=== PATIENT | male | born 1935 | race Caucasian/White ===

== ENCOUNTER 2017-11-03 10:23 | Emergency (ER) | payer OTHER, MEDICARE ==
[~2017-11-03] VITALS: Ht 177.8 cm; Wt 102.0 kg
[~2017-11-03 10:23] MED LIST: IOHEXOL 350 MG/ML 10 ML VIAL (for RAD DIAG) IVCONTRAST ONE
[2017-11-03 10:36] VITALS: BP 187/91; PULSE 60; RESP 19; TEMP 98.2; O2SAT 96
[2017-11-03] MEDS ORDERED: LISI-515 PO (10:42)
[2017-11-03] MEDS ORDERED: GLIM4TAB PO (10:42)
[2017-11-03] MEDS ORDERED: OMEP20TA93 PO (10:42)
[2017-11-03] MEDS ORDERED: ASPI81TA81 (10:42)
[2017-11-03] MEDS ORDERED: PRAV40TA2 PO (10:42)
[2017-11-03] MEDS ORDERED: LEVO75TA3 PO (10:42)
[2017-11-03] MEDS ORDERED: ATEN50TA PO (10:42)
[2017-11-03] MEDS ORDERED: METF500T PO (10:42)
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
[2017-11-03 11:23] LABS: AUTOMATED NEUTROPHIL # 5.9 TH/MM3 (1.8-7.7); BASOPHIL # 0.1 TH/MM3 (0-0.2); BASOPHIL % 1.2 % (0.0-2.0); EOSINOPHIL # 0.2 TH/MM3 (0-0.4); EOSINOPHIL % 2.3 % (0.0-4.0); HEMATOCRIT 45.8 % (39.0-51.0); HEMO FLAGS DIFF FINAL; LYMPH % 14.6 % (9.0-44.0); LYMPHOCYTE # 1.1 TH/MM3 (1.0-4.8); MEAN CELL VOLUME 92.7 FL (80.0-100.0); MEAN CORPUSCULAR HEMOGLOBIN 30.5 PG (27.0-34.0); MEAN CORPUSCULAR HGB CONC 32.9 % (32.0-36.0); MONO % 5.9 % (0.0-8.0); PLATELET COUNT 204 TH/MM3 (150-450); RED BLOOD COUNT 4.94 MIL/MM3 (4.50-5.90); RED CELL DISTRIBUTION WIDTH 13.6 % (11.6-17.2); WHITE BLOOD COUNT 7.7 TH/MM3 (4.0-11.0)
[2017-11-03 11:40] LABS: BICARBONATE 28.9 MEQ/L (21.0-32.0)
[2017-11-03 11:42] LABS: POTASSIUM 4.9 MEQ/L (3.5-5.1)
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
[2017-11-03] MEDS ORDERED: ACETAMINOPHEN/HYDROcodone 325 MG/5 MG TAB PO ONE (12:00)
[2017-11-03 12:04] VITALS: BP 158/73; PULSE 66; RESP 17; O2SAT 97
[2017-11-03 13:05] VITALS: RESP 16
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
[2017-11-03] MEDS ORDERED: MORPHINE SULFATE 4 MG/ML INJ IV PUSH ONE (13:15)
[2017-11-03] MEDS ORDERED: PERC5TAB12 PO ×2 (13:32→14:03)
[2017-11-03 14:45] VITALS: BP 151/76
--- NOTE | 2017-11-03 22:04 | EKG ---
Date Performed: 11/03/2017 Time Performed: 10:43:48 PTAGE: 82 years EKG: SINUS BRADYCARDIA RIGHT BUNDLE BRANCH BLOCK ABNORMAL ECG NO PREVIOUS TRACING DOCTOR: Ap Moreno Interpretating Date/Time 11/03/2017 22:03:36
[2017-11-04] MEDS ORDERED: MOBI15TA PO (19:23)
[2017-11-04] MEDS ORDERED: PERC10TA27 PO (19:23)
== END 2017-11-03 14:45 | disposition home or self-care (01) ==
LOC: NEPC 10:23
DX: S20.212A Contusion of left front wall of thorax, initial encounter (principal); N20.0 Calculus of kidney; E78.00 Pure hypercholesterolemia, unspecified; E11.9 Type 2 diabetes mellitus without complications; I10 Essential (primary) hypertension; E07.9 Disorder of thyroid, unspecified; V43.52XA Car driver injured in collision with other type car in traffic accident, initial encounter; Z79.899 Other long term (current) drug therapy; Z88.0 Allergy status to penicillin
CPT/HCPCS: 71010; 74177; 80048; 85025; 93005; 96374; 99285; J2270; Q9967

== ENCOUNTER 2017-11-04 18:06 | Emergency (ER) | payer OTHER, MEDICARE ==
[~2017-11-04 18:06] MED LIST changes: +ASPI81TA81; +ATEN50TA PO; +GLIM4TAB PO; -IOHEXOL 350 MG/ML 10 ML VIAL (for RAD DIAG) IVCONTRAST ONE; +LEVO75TA3 PO; +LISI-515 PO; +METF500T PO; +OMEP20TA93 PO; +PERC5TAB12 PO; +PRAV40TA2 PO
[2017-11-04 18:08] VITALS: BP 217/99; PULSE 61; RESP 17; TEMP 98.4; O2SAT 99
[2017-11-04] MEDS ORDERED: PROMETHAZINE INJ 25 MG/ML VIAL IM ONE (19:15)
[2017-11-04] MEDS ORDERED: MORPHINE SULFATE 4 MG/ML INJ IM ONE (19:15)
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
[2017-11-04] MEDS ORDERED: PERC10TA27 PO (19:23)
[2017-11-04] MEDS ORDERED: MOBI15TA PO (19:23)
[2017-11-04 19:47] VITALS: BP 169/78
== END 2017-11-04 20:13 | disposition home or self-care (01) ==
LOC: NEPD 18:06
DX: R07.89 Other chest pain (principal); I10 Essential (primary) hypertension; E78.00 Pure hypercholesterolemia, unspecified; E11.9 Type 2 diabetes mellitus without complications; E07.9 Disorder of thyroid, unspecified; Z88.0 Allergy status to penicillin; Z79.899 Other long term (current) drug therapy; V49.49XA Driver injured in collision with other motor vehicles in traffic accident, initial encounter
CPT/HCPCS: 94150; 96372; 99284; J2270; J2550